=== PATIENT | male | born 1995 | race Caucasian/White ===

== ENCOUNTER 2025-04-25 01:59 | Emergency (ER) | payer MEDICAID, OTHER ==
[~2025-04-25] VITALS: Ht 167.6 cm; Wt 78.2 kg
[2025-04-25 02:18] VITALS: TEMP 36.6; O2SAT 97
[2025-04-25 03:00] LABS: BASOPHILS % 0.6 % (0.0-2.0); EOSINOPHILS % 0.2 % (0.0-5.0); HEMATOCRIT. 52.1 % (42.0-52.0); HEMOGLOBIN. 18.3 g/dL (14.0-18.0); LYMPHOCYTES % 38.5 % (20.0-50.0); MEAN CORPUSCULAR HEMOGLOBIN 30.4 pg (28.0-32.0); MEAN CORPUSCULAR HGB CONC 35.2 g/dL (31.0-37.0); MEAN CORPUSCULAR VOLUME 86.2 fL (80.0-94.0); MEAN PLATELET VOLUME 8.2 fl (7.4-10.4); MONOCYTES % 6.7 % (2.0-8.0); PLATELET 216 x1000/uL (130-400); RED BLOOD CELL COUNT 6.04 mill/uL (4.7-6.1); RED CELL DISTRIBUTION WIDTH 14.9 % (11.6-14.6); WHITE BLOOD COUNT 5.7 x1000/uL (4.5-11.0)
[2025-04-25 03:08] LABS: CHLORIDE 103 mEq/L (98-107); POTASSIUM 3.7 mEq/L (3.5-5.1); SODIUM 144 mEq/L (136-145)
[2025-04-25 03:09] LABS: CALCIUM 9.3 mg/dL (8.7-10.4); CARBON DIOXIDE 25 mEq/L (21-32)
[2025-04-25 03:14] LABS: GLUCOSE 157 mg/dL (70-105); UREA NITROGEN BLOOD 19 mg/dL (9-23)
[2025-04-25 03:54] LABS: ALANINE AMINOTRANSFERASE 128 IU/L (10-49); ASPARTATE AMINOTRANSFERASE 125 IU/L (<34); BILIRUBIN DIRECT 0.2 mg/dL (<=3.0); BILIRUBIN TOTAL 0.7 mg/dL (0.1-1.0); PROTEIN TOTAL 7.8 g/dL (6.0-8.3)
[2025-04-25] MEDS: ONDANSETRON HCL 4MG TABLET PO ONE (03:57)
[2025-04-25] MEDS ORDERED: MAG-55 MT (04:51)
[2025-04-25] MEDS: ONDANSETRON 4MG ODT PO ONE (05:23)
[2025-04-25 06:30] VITALS: BP 136/78; PULSE 96; RESP 20; O2SAT 96
== END 2025-04-25 06:33 | disposition home or self-care (01) ==
LOC: ER 02:22
DX: F10.129 Alcohol abuse with intoxication, unspecified (principal); R10.9 Unspecified abdominal pain; Z79.899 Other long term (current) drug therapy; Y90.8 Blood alcohol level of 240 mg/100 ml or more
CPT/HCPCS: 80076; 80048; 80320; 83690; 85025; 36415; 99283; Q0162; G0480